=== PATIENT | male | born 1995 | race Caucasian/White ===

== ENCOUNTER 2019-07-02 09:01 | Emergency (ER) | payer OTHER, SELFPAY ==
[2019-07-02] VITALS (48 sets, daily range): BP systolic 95–248; BP diastolic 38–216; PULSE 56–148; RESP 15–27; TEMP 36.6–37.2; O2SAT 94–100; BMI 24.9
--- NOTE | 2019-07-02 09:30 | ED_ITS ---
HPI - Headache <Mitzy Cortes DO - Last Filed: 07/02/19 19:33> General Chief Complaint: Headache Stated Complaint: Not able to sleep for 2 days/paranoid Time Seen by Provider: 07/02/19 09:18 Mode of arrival: Family Vehicle Limitations: no limitations History of Present Illness HPI Narrative: Patient is a 23-year-old male who presents with all headache and lightheadedness along with hallucinations. He says he had gastroenteritis like symptoms weak but not severe. He had some nausea vomiting some very mild di arrhea. Is really eaten or had much to drink for the last 3 days although he has been able to keep down water. He has not been able to sleep your mom states that last night he was hallucinating seeing things that were not there. He feels like his hallucinations are gone although his the mom states that she still sometimes catches him talking to things that are there. He denies any drug use except for marijuana. MD Complaint: headache Related Data Allergies Allergy/AdvReac Type Severity Reaction Status Date / Time No Known Drug Allergies Allergy Verified 07/02/19 09:24 Review of Systems <Mitzy Cortes DO - Last Filed: 07/02/19 19:33> Review of Systems ROS Unobtainable: All systems reviewed & are unremarkable except as noted in HPI and below Constitutional Constitutional: Denies chills, Denies fever(s), Reports headache(s), Denies lethargy and Denies weakness Eyes Eyes: Denies change in vision, Denies eye discharge, Denies irritation and Denies loss of vision ENT Ears, Nose, Mouth, and Throat: Denies change in voice, Reports headache(s), Denies neck pain and Denies sore throat Cardiovascular Cardiovascular: Denies chest pain, Denies irregular heart rhythm, Denies lightheadedness, Denies palpitations, Denies dyspnea, Denies dyspnea on exertion and Denies orthopnea Respiratory Respiratory: Denies cough, Denies dyspnea, Denies dyspnea on exertion and Denies wheezing Gastrointestinal Gastrointestinal: Reports as per HPI Genitourinary Genitourinary: Denies hematuria, Denies flank pain, Denies urinary incontinence and Denies urinary urgency Musculoskeletal Musculoskeletal: Denies neck pain Integumentary/Breasts Skin/Breast: Denies pruritus, Denies erythema, Denies rash and Denies wounds Neurologic Neurologic: Reports headache(s), Denies loss of vision and Denies weakness Endocrine Endocrine: Denies palpitations Allergic/Immunologic Allergic/Immunologic: Denies wheezing Patient History <DO Fahad Boucher Last Filed: 07/02/19 19:33> Medical History Patient denies medical problems (Acute) Social History Smoking Status: Current every day smoker tobacco type: cigarettes alcohol intake frequency: 3 or more drinks per day 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 HEENT: Head atraumatic,EOMI, pupils reactive, face symmetric, moist mucous membranes CARDIOVASCULAR: Regular rate and rhythm without murmurs, rubs or gallops. RESPIRATORY: Breath sounds equal bilaterally, no wheezes rales or rhonchi. ABDOMEN: Soft, nontender. Normoactive bowel sounds all 4 quadrants. No guarding or rebound. EXTREMITIES: Normal range of motion, no clubbing or edema. Neurovascularly intact NEUROLOGICAL: Alert and oriented x4.Normal gait and speech. Director Of Architecture strength equal bilaterally SKIN: Warm, dry, no laceration, no petechiae, no rashes or lesions. <Rodrigo De Souza DO - Last Filed: 07/03/19 01:42> Initial Vital Signs Initial Vital Signs: Vital Signs Temperature 98.2 F 07/02/19 09:17 Pulse Rate 92 H 07/02/19 09:17 Respiratory Rate 18 07/02/19 09:17 Blood Pressure 163/105 H 07/02/19 09:17 Pulse Oximetry 100 07/02/19 09:17 Procedures <DO Fahad Boucher Last Filed: 07/02/19 19:33> Procedural Sedation Patient Age: Patient is 5yrs or older Consent signed: No Time out performed: Yes Presedation Evaluation: Severe agitation patient was becoming danger to self, I talked with mom about risks and benefits she gave verbal consent ASA Class: I Mallampati Airway Classification: Class I Preparation: furniture crater applied, pulse oximeter, capnometry used, supplemental O2 applied, suction/airway equipment at bedside and IV secured Midazolam dose (mg): 255 IV Propofol dose (mg): 100 Intraservice time/total sedation time (min): 20 ED Sedation Level: Moderate (Concious) Complications: Respiratory Depression-Repositioning Required Interventions: Airway repositioned Additional Comments: Also Ativan 4 mg IV <Rodrigo De Souza, DO - Last Filed: 07/03/19 01:42> Intubation Time out performed: Yes sedative: Ketamine paralytic: Rocuronium Laryngoscope: other ET Tube Size: 7.5 ET Tube Uncuffed: Yes Tube Secured Depth (cm): 23 Tube Secured Location: teeth Tube Placement Confirmation: Visualized tube passing through cords, Equal breath sounds bilaterally, No breath sounds over epigastrium, Confirmation by capnometry and Chest Xray Patient Tolerated Procedure: Well Intubation Complications: none Lumbar Puncture Time Out Performed: Yes Patient Position: left lateral decubitus Skin Prep: 0.5% Chlorhexidine/Alcohol Local Anesthetic: lidocaine 1% Amount of anesthesia used (mL): 2 Spinal Needle Gauge: 22G Interspace Used: L4-L5 Fluid Initially Obtained: clear Complications: none Course <Mitzy Cortes, DO - Last Filed: 07/02/19 19:33> Orders Ordered: ED Orders 07/02/19 19:07 CT head/brain wo con Stat 07/02/19 20:18 CSF culture Stat Cell Count w Diff CSF Stat Glucose CSF Stat HOLD TUBE CSF Stat Meningitis Panel (Film Array) Stat Total Protein CSF Stat 07/02/19 21:06 XR chest 1V Stat 07/02/19 23:00 Arterial Blood Gas Stat Propofol (Propofol) 1,000 mg in 100 mls @ 2.572 mls/hr IV TITRATE HUMBERTO; Protocol Last Admin: 07/03/19 01:00 Dose: 40 mcg/kg/min, 20.575 mls/hr Documented by: Titration: 07/03/19 01:00 Dose: 40 mcg/kg/min, 20.575 mls/hr Documented by: Titration: 07/02/19 22:51 Dose: 40 mcg/kg/min, 20.575 mls/hr Documented by: Titration: 07/02/19 22:37 Dose: 50 mcg/kg/min, 25.719 mls/hr Documented by: Titration: 07/02/19 22:30 Dose: 60 mcg/kg/min, 30.862 mls/hr Documented by: Titration: 07/02/19 22:20 Dose: 70 mcg/kg/min, 36.006 mls/hr Documented by: Titration: 07/02/19 21:27 Dose: 80 mcg/kg/min, 41.15 mls/hr Documented by: Titration: 07/02/19 21:25 Dose: 70 mcg/kg/min, 36.006 mls/hr Documented by: Titration: 07/02/19 21:20 Dose: 20 mcg/kg/min, 10.287 mls/hr Documented by: Titration: 07/02/19 21:12 Dose: 10 mcg/kg/min, 5.144 mls/hr Documented by: Admin: 07/02/19 20:43 Dose: 5 mcg/kg/min, 2.572 mls/hr Documented by: MARISSA Sodium Chloride (Normal Saline 0.9%) 1,000 mls @ 125 mls/hr IV CONT HUMBERTO Last Admin: 07/02/19 23:19 Dose: 125 mls/hr Documented by: MARISSA Discontinued Medications Diazepam (Valium) 5 mg IV NOW ONE Stop: 07/02/19 17:32 Last Admin: 07/02/19 17:41 Dose: 5 mg Documented by: SCOTT Diphenhydramine HCl (Benadryl) 25 mg IV NOW ONE Stop: 07/02/19 09:32 Last Admin: 07/02/19 10:15 Dose: 25 mg Documented by: SCOTT Diphenhydramine HCl (Benadryl) 25 mg IV NOW ONE Stop: 07/02/19 13:06 Last Admin: 07/02/19 13:11 Dose: 25 mg Documented by: SCOTT Haloperidol (Haldol) 2 mg IV NOW ONE Stop: 07/02/19 12:45 Last Admin: 07/02/19 13:01 Dose: 2 mg Documented by: SCOTT Sodium Chloride (Normal Saline 0.9%) 1,000 mls @ 1,000 mls/hr IV BOLUS ONE Stop: 07/02/19 10:30 Last Infusion: 07/02/19 11:41 Dose: 0 mls/hr Documented by: Admin: 07/02/19 10:15 Dose: 1,000 mls/hr Documented by: SCOTT Sodium Chloride (Normal Saline 0.9%) 1,000 mls @ 1,000 mls/hr IV BOLUS ONE Stop: 07/02/19 12:50 Last Infusion: 07/02/19 13:05 Dose: 0 mls/hr Documented by: Admin: 07/02/19 11:57 Dose: 1,000 mls/hr Documented by: SCOTT Sodium Chloride (Normal Saline 0.9%) 1,000 mls @ 1,000 mls/hr IV BOLUS ONE Stop: 07/02/19 15:10 Last Infusion: 07/02/19 15:10 Dose: 0 mls/hr Documented by: Admin: 07/02/19 14:11 Dose: 1,000 mls/hr Documented by: SCOTT Ketamine HCl (Ketalar) 170 mg IV NOW ONE Stop: 07/02/19 14:05 Last Admin: 07/02/19 14:11 Dose: 170 mg Documented by: SCOTT Ketamine HCl (Ketalar) 85 mg 1 mg/kg (85 mg) IV NOW ONE Stop: 07/02/19 14:23 Last Admin: 07/02/19 14:25 Dose: 85 mg Documented by: SCOTT Ketamine HCl (Ketalar) 500 mg IM NOW ONE Stop: 07/02/19 20:04 Last Admin: 07/02/19 20:04 Dose: 500 mg Documented by: SCOTT Ketorolac Tromethamine (Toradol) 30 mg IV NOW ONE Stop: 07/02/19 09:32 Last Admin: 07/02/19 10:14 Dose: 30 mg Documented by: SCOTT Lorazepam (Ativan) 1 mg IV NOW ONE Stop: 07/02/19 11:33 Last Admin: 07/02/19 11:46 Dose: 1 mg Documented by: SCOTT Lorazepam (Ativan) 1 mg IV NOW ONE Stop: 07/02/19 11:52 Last Admin: 07/02/19 11:57 Dose: 1 mg Documented by: SCOTT Lorazepam (Ativan) 2 mg IV NOW ONE Stop: 07/02/19 13:34 Last Admin: 07/02/19 13:41 Dose: 2 mg Documented by: PETE Olanzapine (Zyprexa Zydis) 20 mg PO NOW ONE Stop: 07/02/19 18:28 Last Admin: 07/02/19 18:54 Dose: Not Given Documented by: SCOTT Olanzapine (Zyprexa) 10 mg IM NOW ONE Stop: 07/02/19 18:35 Last Admin: 07/02/19 18:47 Dose: 10 mg Documented by: SCOTT Prochlorperazine (Compazine) 10 mg IV NOW ONE Stop: 07/02/19 09:32 Last Admin: 07/02/19 10:15 Dose: 10 mg Documented by: SCOTT Propofol (Diprivan) 200 mg IV NOW ONE Stop: 07/02/19 19:54 Last Admin: 07/02/19 20:36 Dose: 100 mg Documented by: MARISSA Propofol (Diprivan) 40 mg IV NOW ONE Stop: 07/02/19 21:27 Last Admin: 07/02/19 23:20 Dose: 40 mg Documented by: MARISSA Rocuronium [facility] (Zemuron) 85 mg IV NOW ONE Stop: 07/02/19 20:41 Last Admin: 07/02/19 20:40 Dose: 85 mg Documented by: MARISSA Rocuronium [facility] (Zemuron) 51 mg 0.6 mg/kg (51 mg) IV NOW ONE Stop: 07/02/19 22:00 Last Admin: 07/02/19 21:59 Dose: 51 mg Documented by: MARISSA Reevaluation(s) Reevaluation #1: The patient try to sleep but not yet of sleep points up to the ceiling and says that these guys are keeping him awake Mom says that he has been having these hallucinations ongoing for the last 48 hours straight this is very atypical. He really has not slept. When I question patient directly upon out suicidal ideations homicidal ideations auditory hallucinations he adamantly denies. In fact he feels like he would like to go home now because the bed is uncomfortable. I will give him a dose of Ativan now to see if it helps him sleep. I believe his hallucinations are likely from lack of sleep Time: 11:38 Vital Signs Vital signs: Vital Signs - 8 hr 07/02/19 17:48 07/02/19 18:00 07/02/19 19:25 Pulse Rate 110 H 113 H 104 H Respiratory Rate 20 27 H 15 Blood Pressure [Left Arm] Blood Pressure [Right Arm] 134/63 110/66 143/91 H Pulse Oximetry 94 99 100 07/02/19 20:00 07/02/19 21:30 07/02/19 21:57 Pulse Rate 128 H 88 73 Respiratory Rate 23 18 18 Blood Pressure [Left Arm] 156/117 H Blood Pressure [Right Arm] 137/69 114/53 L Pulse Oximetry 99 99 97 07/02/19 22:15 07/02/19 22:20 07/02/19 22:25 Pulse Rate 77 75 73 Respiratory Rate 18 18 18 Blood Pressure [Left Arm] 107/54 L 104/50 L 105/48 L Blood Pressure [Right Arm] Pulse Oximetry 99 99 99 07/02/19 22:30 07/02/19 22:35 07/02/19 22:40 Pulse Rate 71 72 71 Respiratory Rate 18 18 18 Blood Pressure [Left Arm] 101/51 L 98/50 L 97/50 L Blood Pressure [Right Arm] Pulse Oximetry 99 99 99 07/02/19 22:45 07/02/19 22:50 07/02/19 22:53 Pulse Rate 68 69 62 Respiratory Rate 18 18 18 Blood Pressure [Left Arm] 98/51 L 97/51 L 98/52 L Blood Pressure [Right Arm] Pulse Oximetry 99 99 100 07/02/19 22:55 07/02/19 23:01 07/02/19 23:05 Pulse Rate 67 64 64 Respiratory Rate 18 18 18 Blood Pressure [Left Arm] 95/54 L 98/48 L 104/46 L Blood Pressure [Right Arm] Pulse Oximetry 99 100 100 07/02/19 23:10 07/02/19 23:15 07/02/19 23:20 Pulse Rate 63 59 L 59 L Respiratory Rate 18 18 18 Blood Pressure [Left Arm] 103/48 L 101/49 L 105/50 L Blood Pressure [Right Arm] Pulse Oximetry 100 100 100 07/02/19 23:25 07/02/19 23:30 07/02/19 23:35 Pulse Rate 62 58 L 58 L Respiratory Rate 18 18 18 Blood Pressure [Left Arm] 107/56 L 105/58 L 108/59 L Blood Pressure [Right Arm] Pulse Oximetry 100 100 100 07/02/19 23:40 07/02/19 23:45 07/02/19 23:50 Pulse Rate 56 L 60 59 L Respiratory Rate 18 18 18 Blood Pressure [Left Arm] 108/57 L 105/55 L 105/57 L Blood Pressure [Right Arm] Pulse Oximetry 100 100 100 07/02/19 23:55 07/03/19 00:00 07/03/19 00:05 Pulse Rate 59 L 60 59 L Respiratory Rate 18 18 18 Blood Pressure [Left Arm] 108/56 L 110/55 L 114/65 Blood Pressure [Right Arm] Pulse Oximetry 100 100 100 07/03/19 00:10 07/03/19 00:15 07/03/19 00:20 Pulse Rate 60 61 61 Respiratory Rate 18 18 18 Blood Pressure [Left Arm] 105/53 L 114/52 L 110/59 L Blood Pressure [Right Arm] Pulse Oximetry 100 100 100 07/03/19 00:21 07/03/19 00:25 07/03/19 00:30 Pulse Rate 61 61 60 Respiratory Rate 18 18 Blood Pressure [Left Arm] 110/59 L 114/58 L 114/56 L Blood Pressure [Right Arm] Pulse Oximetry 100 100 100 07/03/19 00:35 07/03/19 00:45 07/03/19 00:50 Pulse Rate 61 63 76 Respiratory Rate 18 18 18 Blood Pressure [Left Arm] 112/61 126/112 H 120/81 Blood Pressure [Right Arm] Pulse Oximetry 100 100 100 07/03/19 00:55 07/03/19 01:00 07/03/19 01:05 Pulse Rate 58 L 64 62 Respiratory Rate 18 18 18 Blood Pressure [Left Arm] 120/87 118/74 120/72 Blood Pressure [Right Arm] Pulse Oximetry 100 100 100 07/03/19 01:10 07/03/19 01:15 07/03/19 01:20 Pulse Rate 67 61 67 Respiratory Rate 18 18 18 Blood Pressure [Left Arm] 117/76 123/78 117/72 Blood Pressure [Right Arm] Pulse Oximetry 100 100 100 07/03/19 01:25 07/03/19 01:30 Pulse Rate 60 65 Respiratory Rate 18 18 Blood Pressure [Left Arm] 117/71 117/70 Blood Pressure [Right Arm] Pulse Oximetry 100 100 <Rodrigo De Souza, DO - Last Filed: 07/03/19 01:42> Course Course Narrative: Patient received in sign-out from Dr. Cortes. I have performed an extensive an independent history and physical exam. At this point time is differential is wide and includes toxic, metabolic, infectious and psychiatric etiologies. Patient continues to extensive visual hallucinations and episodes of violent behavior which are becoming increasingly difficult to verbally deescalate. Patient has received multiple rounds of medications to allow ongoing evaluation and ensure the safety of the patient and our staff. In the end, as the patient continued to escalate I elected to intubate S the patient's airway was becoming compromised. Patient is complex and presents the scenario that is best served at a larger facility. I have spoken with neuro computer operations specialist and computer operations specialist at [facility] and they are happy to accept this patient for ongoing evaluation. Mother (Laney [phone]) is aware of the plan and will head down to [facility] in the morning. [facility] here now. Patient remains stable and intubated Orders Ordered: ED Orders 07/02/19 19:07 CT head/brain wo con Stat 07/02/19 20:18 CSF culture Stat Cell Count w Diff CSF Stat Glucose CSF Stat HOLD TUBE CSF Stat Meningitis Panel (Film Array) Stat Total Protein CSF Stat 07/02/19 21:06 XR chest 1V Stat 07/02/19 23:00 Arterial Blood Gas Stat Propofol (Propofol) 1,000 mg in 100 mls @ 2.572 mls/hr IV TITRATE HUMBERTO; Protocol Last Admin: 07/03/19 01:00 Dose: 40 mcg/kg/min, 20.575 mls/hr Documented by: Titration: 07/03/19 01:00 Dose: 40 mcg/kg/min, 20.575 mls/hr Documented by: Titration: 07/02/19 22:51 Dose: 40 mcg/kg/min, 20.575 mls/hr Documented by: Titration: 07/02/19 22:37 Dose: 50 mcg/kg/min, 25.719 mls/hr Documented by: Titration: 07/02/19 22:30 Dose: 60 mcg/kg/min, 30.862 mls/hr Documented by: Titration: 07/02/19 22:20 Dose: 70 mcg/kg/min, 36.006 mls/hr Documented by: Titration: 07/02/19 21:27 Dose: 80 mcg/kg/min, 41.15 mls/hr Documented by: Titration: 07/02/19 21:25 Dose: 70 mcg/kg/min, 36.006 mls/hr Documented by: Titration: 07/02/19 21:20 Dose: 20 mcg/kg/min, 10.287 mls/hr Documented by: Titration: 07/02/19 21:12 Dose: 10 mcg/kg/min, 5.144 mls/hr Documented by: Admin: 07/02/19 20:43 Dose: 5 mcg/kg/min, 2.572 mls/hr Documented by: MARISSA Sodium Chloride (Normal Saline 0.9%) 1,000 mls @ 125 mls/hr IV CONT HUMBERTO Last Admin: 07/02/19 23:19 Dose: 125 mls/hr Documented by: MARISSA Discontinued Medications Diazepam (Valium) 5 mg IV NOW ONE Stop: 07/02/19 17:32 Last Admin: 07/02/19 17:41 Dose: 5 mg Documented by: SCOTT Diphenhydramine HCl (Benadryl) 25 mg IV NOW ONE Stop: 07/02/19 09:32 Last Admin: 07/02/19 10:15 Dose: 25 mg Documented by: SCOTT Diphenhydramine HCl (Benadryl) 25 mg IV NOW ONE Stop: 07/02/19 13:06 Last Admin: 07/02/19 13:11 Dose: 25 mg Documented by: SCOTT Haloperidol (Haldol) 2 mg IV NOW ONE Stop: 07/02/19 12:45 Last Admin: 07/02/19 13:01 Dose: 2 mg Documented by: SCOTT Sodium Chloride (Normal Saline 0.9%) 1,000 mls @ 1,000 mls/hr IV BOLUS ONE Stop: 07/02/19 10:30 Last Infusion: 07/02/19 11:41 Dose: 0 mls/hr Documented by: Admin: 07/02/19 10:15 Dose: 1,000 mls/hr Documented by: SCOTT Sodium Chloride (Normal Saline 0.9%) 1,000 mls @ 1,000 mls/hr IV BOLUS ONE Stop: 07/02/19 12:50 Last Infusion: 07/02/19 13:05 Dose: 0 mls/hr Documented by: Admin: 07/02/19 11:57 Dose: 1,000 mls/hr Documented by: SCOTT Sodium Chloride (Normal Saline 0.9%) 1,000 mls @ 1,000 mls/hr IV BOLUS ONE Stop: 07/02/19 15:10 Last Infusion: 07/02/19 15:10 Dose: 0 mls/hr Documented by: Admin: 07/02/19 14:11 Dose: 1,000 mls/hr Documented by: SCOTT Ketamine HCl (Ketalar) 170 mg IV NOW ONE Stop: 07/02/19 14:05 Last Admin: 07/02/19 14:11 Dose: 170 mg Documented by: SCOTT Ketamine HCl (Ketalar) 85 mg 1 mg/kg (85 mg) IV NOW ONE Stop: 07/02/19 14:23 Last Admin: 07/02/19 14:25 Dose: 85 mg Documented by: SCOTT Ketamine HCl (Ketalar) 500 mg IM NOW ONE Stop: 07/02/19 20:04 Last Admin: 07/02/19 20:04 Dose: 500 mg Documented by: SCOTT Ketorolac Tromethamine (Toradol) 30 mg IV NOW ONE Stop: 07/02/19 09:32 Last Admin: 07/02/19 10:14 Dose: 30 mg Documented by: SCOTT Lorazepam (Ativan) 1 mg IV NOW ONE Stop: 07/02/19 11:33 Last Admin: 07/02/19 11:46 Dose: 1 mg Documented by: SCOTT Lorazepam (Ativan) 1 mg IV NOW ONE Stop: 07/02/19 11:52 Last Admin: 07/02/19 11:57 Dose: 1 mg Documented by: SCOTT Lorazepam (Ativan) 2 mg IV NOW ONE Stop: 07/02/19 13:34 Last Admin: 07/02/19 13:41 Dose: 2 mg Documented by: PETE Olanzapine (Zyprexa Zydis) 20 mg PO NOW ONE Stop: 07/02/19 18:28 Last Admin: 07/02/19 18:54 Dose: Not Given Documented by: SCOTT Olanzapine (Zyprexa) 10 mg IM NOW ONE Stop: 07/02/19 18:35 Last Admin: 07/02/19 18:47 Dose: 10 mg Documented by: SCOTT Prochlorperazine (Compazine) 10 mg IV NOW ONE Stop: 07/02/19 09:32 Last Admin: 07/02/19 10:15 Dose: 10 mg Documented by: SCOTT Propofol (Diprivan) 200 mg IV NOW ONE Stop: 07/02/19 19:54 Last Admin: 07/02/19 20:36 Dose: 100 mg Documented by: MARISSA Propofol (Diprivan) 40 mg IV NOW ONE Stop: 07/02/19 21:27 Last Admin: 07/02/19 23:20 Dose: 40 mg Documented by: MARISSA Rocuronium [facility] (Zemuron) 85 mg IV NOW ONE Stop: 07/02/19 20:41 Last Admin: 07/02/19 20:40 Dose: 85 mg Documented by: MARISSA Rocuronium [facility] (Zemuron) 51 mg 0.6 mg/kg (51 mg) IV NOW ONE Stop: 07/02/19 22:00 Last Admin: 07/02/19 21:59 Dose: 51 mg Documented by: MARISSA Vital Signs Vital signs: Vital Signs - 8 hr 07/02/19 17:48 07/02/19 18:00 07/02/19 19:25 Pulse Rate 110 H 113 H 104 H Respiratory Rate 20 27 H 15 Blood Pressure [Left Arm] Blood Pressure [Right Arm] 134/63 110/66 143/91 H Pulse Oximetry 94 99 100 07/02/19 20:00 07/02/19 21:30 07/02/19 21:57 Pulse Rate 128 H 88 73 Respiratory Rate 23 18 18 Blood Pressure [Left Arm] 156/117 H Blood Pressure [Right Arm] 137/69 114/53 L Pulse Oximetry 99 99 97 07/02/19 22:15 07/02/19 22:20 07/02/19 22:25 Pulse Rate 77 75 73 Respiratory Rate 18 18 18 Blood Pressure [Left Arm] 107/54 L 104/50 L 105/48 L Blood Pressure [Right Arm] Pulse Oximetry 99 99 99 07/02/19 22:30 07/02/19 22:35 07/02/19 22:40 Pulse Rate 71 72 71 Respiratory Rate 18 18 18 Blood Pressure [Left Arm] 101/51 L 98/50 L 97/50 L Blood Pressure [Right Arm] Pulse Oximetry 99 99 99 07/02/19 22:45 07/02/19 22:50 07/02/19 22:53 Pulse Rate 68 69 62 Respiratory Rate 18 18 18 Blood Pressure [Left Arm] 98/51 L 97/51 L 98/52 L Blood Pressure [Right Arm] Pulse Oximetry 99 99 100 07/02/19 22:55 07/02/19 23:01 07/02/19 23:05 Pulse Rate 67 64 64 Respiratory Rate 18 18 18 Blood Pressure [Left Arm] 95/54 L 98/48 L 104/46 L Blood Pressure [Right Arm] Pulse Oximetry 99 100 100 07/02/19 23:10 07/02/19 23:15 07/02/19 23:20 Pulse Rate 63 59 L 59 L Respiratory Rate 18 18 18 Blood Pressure [Left Arm] 103/48 L 101/49 L 105/50 L Blood Pressure [Right Arm] Pulse Oximetry 100 100 100 07/02/19 23:25 07/02/19 23:30 07/02/19 23:35 Pulse Rate 62 58 L 58 L Respiratory Rate 18 18 18 Blood Pressure [Left Arm] 107/56 L 105/58 L 108/59 L Blood Pressure [Right Arm] Pulse Oximetry 100 100 100 07/02/19 23:40 07/02/19 23:45 07/02/19 23:50 Pulse Rate 56 L 60 59 L Respiratory Rate 18 18 18 Blood Pressure [Left Arm] 108/57 L 105/55 L 105/57 L Blood Pressure [Right Arm] Pulse Oximetry 100 100 100 07/02/19 23:55 07/03/19 00:00 07/03/19 00:05 Pulse Rate 59 L 60 59 L Respiratory Rate 18 18 18 Blood Pressure [Left Arm] 108/56 L 110/55 L 114/65 Blood Pressure [Right Arm] Pulse Oximetry 100 100 100 07/03/19 00:10 07/03/19 00:15 07/03/19 00:20 Pulse Rate 60 61 61 Respiratory Rate 18 18 18 Blood Pressure [Left Arm] 105/53 L 114/52 L 110/59 L Blood Pressure [Right Arm] Pulse Oximetry 100 100 100 07/03/19 00:21 07/03/19 00:25 07/03/19 00:30 Pulse Rate 61 61 60 Respiratory Rate 18 18 Blood Pressure [Left Arm] 110/59 L 114/58 L 114/56 L Blood Pressure [Right Arm] Pulse Oximetry 100 100 100 07/03/19 00:35 07/03/19 00:45 07/03/19 00:50 Pulse Rate 61 63 76 Respiratory Rate 18 18 18 Blood Pressure [Left Arm] 112/61 126/112 H 120/81 Blood Pressure [Right Arm] Pulse Oximetry 100 100 100 07/03/19 00:55 07/03/19 01:00 07/03/19 01:05 Pulse Rate 58 L 64 62 Respiratory Rate 18 18 18 Blood Pressure [Left Arm] 120/87 118/74 120/72 Blood Pressure [Right Arm] Pulse Oximetry 100 100 100 07/03/19 01:10 07/03/19 01:15 07/03/19 01:20 Pulse Rate 67 61 67 Respiratory Rate 18 18 18 Blood Pressure [Left Arm] 117/76 123/78 117/72 Blood Pressure [Right Arm] Pulse Oximetry 100 100 100 07/03/19 01:25 07/03/19 01:30 Pulse Rate 60 65 Respiratory Rate 18 18 Blood Pressure [Left Arm] 117/71 117/70 Blood Pressure [Right Arm] Pulse Oximetry 100 100 MDM - Headache <Mitzy Cortes, DO - Last Filed: 07/02/19 19:33> Lab Data Attestation: I reviewed the patient's lab results. Result diagrams: 07/02/19 10:00 07/02/19 10:00 Labs: Lab Results 07/02/19 07/02/19 07/02/19 Range/Units 10:00 10:00 10:00 WBC 4.6 (4.5-11.0) X10^3/uL RBC 4.66 (4.5-5.9) X10^6/uL Hgb 14.6 (13.5-17.5) g/dL Hct 42.2 (41-53) % MCV 90.5 (80-100) fL MCH 31.2 (26-34) PG MCHC 34.5 (30-36) % RDW 12.6 (11.6-14.8) % Plt Count 178 (150-400) X10^3/uL Neut % (Auto) 67.1 (50-75) % Lymph % (Auto) 19.7 L (25-40) % Dale % (Auto) 12.0 (3-14) % Eos % (Auto) 0.5 L (2-4) % Baso % (Auto) 0.7 (0-2) % Neut # (Auto) 3100 (8638-1144) /uL Lymph # (Auto) 900 L (0361-7046) /uL Dale # (Auto) 600 (0-900) /uL Eos # (Auto) 0 (0-450) /uL Baso # (Auto) 0 (0-100) /uL ABG pH (7.35-7.45) ABG pCO2 (35-45) mmHg ABG pO2 (80-100) mmHg ABG HCO3 (22-26) mmol/L ABG Total CO2 (21-31) mmol/L ABG O2 Saturation (95-100) % ABG Base Excess (-2-2) mmol/L FiO2 Sodium 138 (137-145) mmol/L Potassium 3.7 (3.4-5.1) mmol/L Chloride 99 (98-107) mmol/L Carbon Dioxide 23 (22-32) mmol/L BUN 12 (9-20) mg/dL Creatinine 0.90 (0.66-1.25) mg/dL Estimated GFR > 60.0 (>60) mL/min BUN/Creatinine Ratio 13.3 (6-22) Glucose 96 (70-100) mg/dL Calcium 9.9 (8.4-10.2) mg/dL Procalcitonin (<0.5) ng/mL CSF Tube Number CSF Volume CSF Appearance (Clear) CSF Color (Colorless) CSF WBC (0-5) MONO/uL CSF RBC RBC /uL CSF Mononuclear WBCs CSF Polynuclear WBCs CSF Glucose (40-70) mg/dL CSF Total Protein (12-60) mg/dL CSF C.neoform/gat PCR (Not Detect) CSF CMV DNA (PCR) (Not Detect) CSF Enterovirus (PCR) (Not Detect) CSF E. coli (PCR) (Not Detect) CSF H. influenzae (PCR) (Not Detect) CSF HSV I (PCR) (Not Detect) CSF HSV II (PCR) (Not Detect) CSF HHV 6 (PCR) (Not Detect) CSF L.monocytogenes PCR (Not Detect) CSF N. meningitidis PCR (Not Detect) CSF Parechovirus (PCR) (Not Detect) CSF S. agalactiae (PCR) (Not Detect) CSF S. pneumoniae (PCR) (Not Detect) CSF VZV (PCR) (Not Detecte) Salicylates (<20) mg/dL U Morph 300 ng/mL cutoff Negative (Negative) Ur Oxycodone Screen Negative (Negative) Urine Methadone Screen Negative (Negative) Acetaminophen (10-30) ug/mL Ur Barbiturates Screen Negative (Negative) U Tricyclic Antidepress Negative (Negative) Ur Phencyclidine Scrn Negative (Negative) Ur Amphetamines Screen Negative (Negative) U Methamphetamines Scrn Negative (Negative) Ur MDMA Scrn (Ecstasy) Negative (Negative) U Benzodiazepines Scrn Negative (Negative) Urine Cocaine Screen Negative (Negative) U Marijuana (THC) Screen Positive H (Negative) Ethyl Alcohol ( - 10) mg/dL 07/02/19 07/02/19 07/02/19 Range/Units 11:30 12:52 20:18 WBC (4.5-11.0) X10^3/uL RBC (4.5-5.9) X10^6/uL Hgb (13.5-17.5) g/dL Hct (41-53) % MCV (80-100) fL MCH (26-34) PG MCHC (30-36) % RDW (11.6-14.8) % Plt Count (150-400) X10^3/uL Neut % (Auto) (50-75) % Lymph % (Auto) (25-40) % Dale % (Auto) (3-14) % Eos % (Auto) (2-4) % Baso % (Auto) (0-2) % Neut # (Auto) (3034-1133) /uL Lymph # (Auto) (2483-2135) /uL Dale # (Auto) (0-900) /uL Eos # (Auto) (0-450) /uL Baso # (Auto) (0-100) /uL ABG pH (7.35-7.45) ABG pCO2 (35-45) mmHg ABG pO2 (80-100) mmHg ABG HCO3 (22-26) mmol/L ABG Total CO2 (21-31) mmol/L ABG O2 Saturation (95-100) % ABG Base Excess (-2-2) mmol/L FiO2 Sodium (137-145) mmol/L Potassium (3.4-5.1) mmol/L Chloride (98-107) mmol/L Carbon Dioxide (22-32) mmol/L BUN (9-20) mg/dL Creatinine (0.66-1.25) mg/dL Estimated GFR (>60) mL/min BUN/Creatinine Ratio (6-22) Glucose (70-100) mg/dL Calcium (8.4-10.2) mg/dL Procalcitonin < 0.05 (<0.5) ng/mL CSF Tube Number 3 CSF Volume 1.5 ml CSF Appearance Clear (Clear) CSF Color Colorless (Colorless) CSF WBC 0 (0-5) MONO/uL CSF RBC 2 RBC /uL CSF Mononuclear WBCs Not Reportable CSF Polynuclear WBCs Not Reportable CSF Glucose 53 (40-70) mg/dL CSF Total Protein 47 (12-60) mg/dL CSF C.neoform/gat PCR (Not Detect) CSF CMV DNA (PCR) (Not Detect) CSF Enterovirus (PCR) (Not Detect) CSF E. coli (PCR) (Not Detect) CSF H. influenzae (PCR) (Not Detect) CSF HSV I (PCR) (Not Detect) CSF HSV II (PCR) (Not Detect) CSF HHV 6 (PCR) (Not Detect) CSF L.monocytogenes PCR (Not Detect) CSF N. meningitidis PCR (Not Detect) CSF Parechovirus (PCR) (Not Detect) CSF S. agalactiae (PCR) (Not Detect) CSF S. pneumoniae (PCR) (Not Detect) CSF VZV (PCR) (Not Detecte) Salicylates < 1.0 (<20) mg/dL U Morph 300 ng/mL cutoff (Negative) Ur Oxycodone Screen (Negative) Urine Methadone Screen (Negative) Acetaminophen < 10 L (10-30) ug/mL Ur Barbiturates Screen (Negative) U Tricyclic Antidepress (Negative) Ur Phencyclidine Scrn (Negative) Ur Amphetamines Screen (Negative) U Methamphetamines Scrn (Negative) Ur MDMA Scrn (Ecstasy) (Negative) U Benzodiazepines Scrn (Negative) Urine Cocaine Screen (Negative) U Marijuana (THC) Screen (Negative) Ethyl Alcohol < 10 ( - 10) mg/dL 07/02/19 07/02/19 Range/Units 20:18 23:00 WBC (4.5-11.0) X10^3/uL RBC (4.5-5.9) X10^6/uL Hgb (13.5-17.5) g/dL Hct (41-53) % MCV (80-100) fL MCH (26-34) PG MCHC (30-36) % RDW (11.6-14.8) % Plt Count (150-400) X10^3/uL Neut % (Auto) (50-75) % Lymph % (Auto) (25-40) % Dale % (Auto) (3-14) % Eos % (Auto) (2-4) % Baso % (Auto) (0-2) % Neut # (Auto) (8052-1213) /uL Lymph # (Auto) (9216-5996) /uL Dale # (Auto) (0-900) /uL Eos # (Auto) (0-450) /uL Baso # (Auto) (0-100) /uL ABG pH 7.41 (7.35-7.45) ABG pCO2 31.1 L (35-45) mmHg ABG pO2 71 L (80-100) mmHg ABG HCO3 20 L (22-26) mmol/L ABG Total CO2 21 (21-31) mmol/L ABG O2 Saturation 95 (95-100) % ABG Base Excess -5.0 L (-2-2) mmol/L FiO2 0.30 Sodium (137-145) mmol/L Potassium (3.4-5.1) mmol/L Chloride (98-107) mmol/L Carbon Dioxide (22-32) mmol/L BUN (9-20) mg/dL Creatinine (0.66-1.25) mg/dL Estimated GFR (>60) mL/min BUN/Creatinine Ratio (6-22) Glucose (70-100) mg/dL Calcium (8.4-10.2) mg/dL Procalcitonin (<0.5) ng/mL CSF Tube Number CSF Volume CSF Appearance (Clear) CSF Color (Colorless) CSF WBC (0-5) MONO/uL CSF RBC RBC /uL CSF Mononuclear WBCs CSF Polynuclear WBCs CSF Glucose (40-70) mg/dL CSF Total Protein (12-60) mg/dL CSF C.neoform/gat PCR Not detected (Not Detect) CSF CMV DNA (PCR) Not detected (Not Detect) CSF Enterovirus (PCR) Not detected (Not Detect) CSF E. coli (PCR) Not detected (Not Detect) CSF H. influenzae (PCR) Not detected (Not Detect) CSF HSV I (PCR) Not detected (Not Detect) CSF HSV II (PCR) Not detected (Not Detect) CSF HHV 6 (PCR) Not detected (Not Detect) CSF L.monocytogenes PCR Not detected (Not Detect) CSF N. meningitidis PCR Not detected (Not Detect) CSF Parechovirus (PCR) Not detected (Not Detect) CSF S. agalactiae (PCR) Not detected (Not Detect) CSF S. pneumoniae (PCR) Not detected (Not Detect) CSF VZV (PCR) Not detected (Not Detecte) Salicylates (<20) mg/dL U Morph 300 ng/mL cutoff (Negative) Ur Oxycodone Screen (Negative) Urine Methadone Screen (Negative) Acetaminophen (10-30) ug/mL Ur Barbiturates Screen (Negative) U Tricyclic Antidepress (Negative) Ur Phencyclidine Scrn (Negative) Ur Amphetamines Screen (Negative) U Methamphetamines Scrn (Negative) Ur MDMA Scrn (Ecstasy) (Negative) U Benzodiazepines Scrn (Negative) Urine Cocaine Screen (Negative) U Marijuana (THC) Screen (Negative) Ethyl Alcohol ( - 10) mg/dL MDM Narrative Medical decision making narrative: Patient is obviously clearly hallucinating. This is likely due from insomnia the last 48 hours. I will give him Ativan to see if this helps let him sleep. He denies any suicidal ideations. No known history of mental illness. The patient was given Benadryl Toradol and Compazine initially for migraine like headache. Hallucinations, got worse after that. He was given Haldol and more Benadryl along with Ativan and he is continue to get more agitated and hallucinating. Symptoms seemed to be extra pyramidal, from likely of Benadryl. He was not responding to Ativan he was given multiple doses of Ativan. Patient started getting up and walking towards people I discussed with mom giving him ketamine. Respiratory therapy was called conscious sedation protocol followed. Patient was given 3 makes per kg of ketamine, he continue to have hallucinate. He was then given 100 mg of propofol which allowed him to sleep. He was monitored the entire time, an oral airway was placed however his CO2 remained good oral airway was temporary he maintained his airway. He was able to sleep for a few hours. Now getting agitated again trying to pull all lines. Mom states that he was hallucinating this pad last night as well it is possible he has underlying schizophrenia. However cannot assess that at this time. Valium ordered. Patient signed out to Dr. De Souza for further evaluation and treatment <Rodrigo De Souza DO - Last Filed: 07/03/19 01:42> Lab Data Labs: Lab Results 07/02/19 07/02/19 07/02/19 Range/Units 10:00 10:00 10:00 WBC 4.6 (4.5-11.0) X10^3/uL RBC 4.66 (4.5-5.9) X10^6/uL Hgb 14.6 (13.5-17.5) g/dL Hct 42.2 (41-53) % MCV 90.5 (80-100) fL MCH 31.2 (26-34) PG MCHC 34.5 (30-36) % RDW 12.6 (11.6-14.8) % Plt Count 178 (150-400) X10^3/uL Neut % (Auto) 67.1 (50-75) % Lymph % (Auto) 19.7 L (25-40) % Dale % (Auto) 12.0 (3-14) % Eos % (Auto) 0.5 L (2-4) % Baso % (Auto) 0.7 (0-2) % Neut # (Auto) 3100 (2524-2261) /uL Lymph # (Auto) 900 L (3968-9359) /uL Dale # (Auto) 600 (0-900) /uL Eos # (Auto) 0 (0-450) /uL Baso # (Auto) 0 (0-100) /uL ABG pH (7.35-7.45) ABG pCO2 (35-45) mmHg ABG pO2 (80-100) mmHg ABG HCO3 (22-26) mmol/L ABG Total CO2 (21-31) mmol/L ABG O2 Saturation (95-100) % ABG Base Excess (-2-2) mmol/L FiO2 Sodium 138 (137-145) mmol/L Potassium 3.7 (3.4-5.1) mmol/L Chloride 99 (98-107) mmol/L Carbon Dioxide 23 (22-32) mmol/L BUN 12 (9-20) mg/dL Creatinine 0.90 (0.66-1.25) mg/dL Estimated GFR > 60.0 (>60) mL/min BUN/Creatinine Ratio 13.3 (6-22) Glucose 96 (70-100) mg/dL Calcium 9.9 (8.4-10.2) mg/dL Procalcitonin (<0.5) ng/mL CSF Tube Number CSF Volume CSF Appearance (Clear) CSF Color (Colorless) CSF WBC (0-5) MONO/uL CSF RBC RBC /uL CSF Mononuclear WBCs CSF Polynuclear WBCs CSF Glucose (40-70) mg/dL CSF Total Protein (12-60) mg/dL CSF C.neoform/gat PCR (Not Detect) CSF CMV DNA (PCR) (Not Detect) CSF Enterovirus (PCR) (Not Detect) CSF E. coli (PCR) (Not Detect) CSF H. influenzae (PCR) (Not Detect) CSF HSV I (PCR) (Not Detect) CSF HSV II (PCR) (Not Detect) CSF HHV 6 (PCR) (Not Detect) CSF L.monocytogenes PCR (Not Detect) CSF N. meningitidis PCR (Not Detect) CSF Parechovirus (PCR) (Not Detect) CSF S. agalactiae (PCR) (Not Detect) CSF S. pneumoniae (PCR) (Not Detect) CSF VZV (PCR) (Not Detecte) Salicylates (<20) mg/dL U Morph 300 ng/mL cutoff Negative (Negative) Ur Oxycodone Screen Negative (Negative) Urine Methadone Screen Negative (Negative) Acetaminophen (10-30) ug/mL Ur Barbiturates Screen Negative (Negative) U Tricyclic Antidepress Negative (Negative) Ur Phencyclidine Scrn Negative (Negative) Ur Amphetamines Screen Negative (Negative) U Methamphetamines Scrn Negative (Negative) Ur MDMA Scrn (Ecstasy) Negative (Negative) U Benzodiazepines Scrn Negative (Negative) Urine Cocaine Screen Negative (Negative) U Marijuana (THC) Screen Positive H (Negative) Ethyl Alcohol ( - 10) mg/dL 07/02/19 07/02/19 07/02/19 Range/Units 11:30 12:52 20:18 WBC (4.5-11.0) X10^3/uL RBC (4.5-5.9) X10^6/uL Hgb (13.5-17.5) g/dL Hct (41-53) % MCV (80-100) fL MCH (26-34) PG MCHC (30-36) % RDW (11.6-14.8) % Plt Count (150-400) X10^3/uL Neut % (Auto) (50-75) % Lymph % (Auto) (25-40) % Dale % (Auto) (3-14) % Eos % (Auto) (2-4) % Baso % (Auto) (0-2) % Neut # (Auto) (1485-6968) /uL Lymph # (Auto) (5193-4541) /uL Dale # (Auto) (0-900) /uL Eos # (Auto) (0-450) /uL Baso # (Auto) (0-100) /uL ABG pH (7.35-7.45) ABG pCO2 (35-45) mmHg ABG pO2 (80-100) mmHg ABG HCO3 (22-26) mmol/L ABG Total CO2 (21-31) mmol/L ABG O2 Saturation (95-100) % ABG Base Excess (-2-2) mmol/L FiO2 Sodium (137-145) mmol/L Potassium (3.4-5.1) mmol/L Chloride (98-107) mmol/L Carbon Dioxide (22-32) mmol/L BUN (9-20) mg/dL Creatinine (0.66-1.25) mg/dL Estimated GFR (>60) mL/min BUN/Creatinine Ratio (6-22) Glucose (70-100) mg/dL Calcium (8.4-10.2) mg/dL Procalcitonin < 0.05 (<0.5) ng/mL CSF Tube Number 3 CSF Volume 1.5 ml CSF Appearance Clear (Clear) CSF Color Colorless (Colorless) CSF WBC 0 (0-5) MONO/uL CSF RBC 2 RBC /uL CSF Mononuclear WBCs Not Reportable CSF Polynuclear WBCs Not Reportable CSF Glucose 53 (40-70) mg/dL CSF Total Protein 47 (12-60) mg/dL CSF C.neoform/gat PCR (Not Detect) CSF CMV DNA (PCR) (Not Detect) CSF Enterovirus (PCR) (Not Detect) CSF E. coli (PCR) (Not Detect) CSF H. influenzae (PCR) (Not Detect) CSF HSV I (PCR) (Not Detect) CSF HSV II (PCR) (Not Detect) CSF HHV 6 (PCR) (Not Detect) CSF L.monocytogenes PCR (Not Detect) CSF N. meningitidis PCR (Not Detect) CSF Parechovirus (PCR) (Not Detect) CSF S. agalactiae (PCR) (Not Detect) CSF S. pneumoniae (PCR) (Not Detect) CSF VZV (PCR) (Not Detecte) Salicylates < 1.0 (<20) mg/dL U Morph 300 ng/mL cutoff (Negative) Ur Oxycodone Screen (Negative) Urine Methadone Screen (Negative) Acetaminophen < 10 L (10-30) ug/mL Ur Barbiturates Screen (Negative) U Tricyclic Antidepress (Negative) Ur Phencyclidine Scrn (Negative) Ur Amphetamines Screen (Negative) U Methamphetamines Scrn (Negative) Ur MDMA Scrn (Ecstasy) (Negative) U Benzodiazepines Scrn (Negative) Urine Cocaine Screen (Negative) U Marijuana (THC) Screen (Negative) Ethyl Alcohol < 10 ( - 10) mg/dL 07/02/19 07/02/19 Range/Units 20:18 23:00 WBC (4.5-11.0) X10^3/uL RBC (4.5-5.9) X10^6/uL Hgb (13.5-17.5) g/dL Hct (41-53) % MCV (80-100) fL MCH (26-34) PG MCHC (30-36) % RDW (11.6-14.8) % Plt Count (150-400) X10^3/uL Neut % (Auto) (50-75) % Lymph % (Auto) (25-40) % Dale % (Auto) (3-14) % Eos % (Auto) (2-4) % Baso % (Auto) (0-2) % Neut # (Auto) (5536-9061) /uL Lymph # (Auto) (3288-0185) /uL Dale # (Auto) (0-900) /uL Eos # (Auto) (0-450) /uL Baso # (Auto) (0-100) /uL ABG pH 7.41 (7.35-7.45) ABG pCO2 31.1 L (35-45) mmHg ABG pO2 71 L (80-100) mmHg ABG HCO3 20 L (22-26) mmol/L ABG Total CO2 21 (21-31) mmol/L ABG O2 Saturation 95 (95-100) % ABG Base Excess -5.0 L (-2-2) mmol/L FiO2 0.30 Sodium (137-145) mmol/L Potassium (3.4-5.1) mmol/L Chloride (98-107) mmol/L Carbon Dioxide (22-32) mmol/L BUN (9-20) mg/dL Creatinine (0.66-1.25) mg/dL Estimated GFR (>60) mL/min BUN/Creatinine Ratio (6-22) Glucose (70-100) mg/dL Calcium (8.4-10.2) mg/dL Procalcitonin (<0.5) ng/mL CSF Tube Number CSF Volume CSF Appearance (Clear) CSF Color (Colorless) CSF WBC (0-5) MONO/uL CSF RBC RBC /uL CSF Mononuclear WBCs CSF Polynuclear WBCs CSF Glucose (40-70) mg/dL CSF Total Protein (12-60) mg/dL CSF C.neoform/gat PCR Not detected (Not Detect) CSF CMV DNA (PCR) Not detected (Not Detect) CSF Enterovirus (PCR) Not detected (Not Detect) CSF E. coli (PCR) Not detected (Not Detect) CSF H. influenzae (PCR) Not detected (Not Detect) CSF HSV I (PCR) Not detected (Not Detect) CSF HSV II (PCR) Not detected (Not Detect) CSF HHV 6 (PCR) Not detected (Not Detect) CSF L.monocytogenes PCR Not detected (Not Detect) CSF N. meningitidis PCR Not detected (Not Detect) CSF Parechovirus (PCR) Not detected (Not Detect) CSF S. agalactiae (PCR) Not detected (Not Detect) CSF S. pneumoniae (PCR) Not detected (Not Detect) CSF VZV (PCR) Not detected (Not Detecte) Salicylates (<20) mg/dL U Morph 300 ng/mL cutoff (Negative) Ur Oxycodone Screen (Negative) Urine Methadone Screen (Negative) Acetaminophen (10-30) ug/mL Ur Barbiturates Screen (Negative) U Tricyclic Antidepress (Negative) Ur Phencyclidine Scrn (Negative) Ur Amphetamines Screen (Negative) U Methamphetamines Scrn (Negative) Ur MDMA Scrn (Ecstasy) (Negative) U Benzodiazepines Scrn (Negative) Urine Cocaine Screen (Negative) U Marijuana (THC) Screen (Negative) Ethyl Alcohol ( - 10) mg/dL Imaging Data CT scan - head: Radiologist's impression: Luis A Lorenz 23 M 1995 [place] [address] CT Scan Report Signed Patient: Marilee LorenzR#: [id number] : 1995Acct:[id number] Age/Sex: 23 / MDate of Service: 07/02/19 Loc: ED Accession Number: [id number] Procedure: CT head/brain wo con Ordering Provider: Rodrigo De Souza D.O. PROCEDURE: CT HEAD/BRAIN WO CON INDICATIONS: mental status change TECHNIQUE: Noncontrast 4.5 mm thick angled axial sections acquired from the foramen magnum to the vertex, with coronal and sagittal reformats. For radiation dose reduction, the following was used: automated exposure control, adjustment of mA and/or kV according to patient size. COMPARISON: None. FINDINGS: Image quality: Excellent. CSF spaces: Basal cisterns are patent. No extra-axial fluid collections. Ventricles are normal in size and shape. Brain: No midline shift. No intracranial masses or hemorrhage. Bermudez-white matter interface is normal. Skull and face: Calvarium and visualized facial bones are intact, without suspicious lesions. Sinuses: Small bilateral maxillary sinus mucus retention cysts. Minimal left ethmoid opacification. IMPRESSION: 1. No evidence acute stroke, hemorrhage, or mass. Normal brain parenchyma. 2. Mild sinus disease. Dictated by: Camden Mcelroy M.D. on 07/02/2019 at 20:05 Approved by: Camden Mcelroy M.D. on 07/02/2019 at 20:06 <Rodrigo De Souza DO - Last Filed: 07/03/19 01:42> Critical Care Time Critical Care Time: Yes Total Critical Care Time: 60 Attestation: The high probability of a clinically significant, sudden or life threatening deterioration of the [] system(s) required my full and direct attention, intervention and personal management. The aggregate critical care time was [60] minutes. This time is in addition to time spent performing reported procedures but includes the following: [x] Data Review and interpretation [x] Patient assessment and monitoring of vital signs [x] Documentation [x] Medication orders and management Discharge Plan Departure [facility] Disposition: [facility] Clinical Impression: Acute delirium, Agitated, Encephalopathy
--- NOTE | 2019-07-02 09:43 | PC.NURSE ---
Patient asked for water and gave them ice water
[2019-07-02 10:12] LABS: Add Manual Diff / Slide Review NO; Basophils Absolute Auto 0 /uL (0-100); Basophils Percent Auto 0.7 % (0-2); Eosinophils Absolute Auto 0 /uL (0-450); Eosinophils Percent Auto 0.5 % (2-4); Hematocrit 42.2 % (41-53); Hemoglobin 14.6 g/dL (13.5-17.5); Lymphocytes Absolute Auto 900 /uL (1100-4500); Lymphocytes Percent Auto 19.7 % (25-40); Mean Corpuscular HGB Conc 34.5 % (30-36); Mean Corpuscular Hemoglobin 31.2 PG (26-34); Mean Corpuscular Volume 90.5 fL (80-100); Monocytes Absolute Auto 600 /uL (0-900); Neutrophils Absolute Auto 3100 /uL (1500-7000); Neutrophils Percent Auto 67.1 % (50-75); Platelet Count 178 X10^3/uL (150-400); Red Blood Cell Count 4.66 X10^6/uL (4.5-5.9); Red Cell Distribution Width 12.6 % (11.6-14.8); White Blood Cell Count 4.6 X10^3/uL (4.5-11.0)
[2019-07-02] MEDS: KETOROLAC 60 MG/2 ML VIAL 30 MG IV (10:14)
[2019-07-02 10:15] LABS: UR Morphine/Opiate cutoff 300 Negative (Negative); Ur Creatinine Normal (Normal); Ur Specific Gravity Normal (Normal); Urine Amphetamines Negative (Negative); Urine Barbiturates Negative (Negative); Urine Benzodiazepines Negative (Negative); Urine Cocaine Negative (Negative); Urine MDMA Negative (Negative); Urine Methadone Negative (Negative); Urine Methamphetamines Negative (Negative); Urine Oxycodone Negative (Negative); Urine Phencyclidine Negative (Negative); Urine Tetrahydrocannabinol Positive (Negative); Urine Tricyclic Antidepressant Negative (Negative); Urine pH Normal (Normal)
[2019-07-02] MEDS: diphenhydrAMINE 50 MG/ML VIAL 25 MG IV ×2 (10:15→13:11)
[2019-07-02] MEDS: SODIUM CHLORIDE 0.9% 1,000 ML 1000 ML IV ×3 (10:15→14:11)
[2019-07-02] MEDS: PROCHLORPERAZINE 10 MG/2 ML VIAL IV (10:15)
[2019-07-02 10:23] LABS: BUN Creatinine Ratio 13.3 (6-22); Blood Urea Nitrogen 12 mg/dL (9-20); Calcium 9.9 mg/dL (8.4-10.2); Carbon Dioxide 23 mmol/L (22-32); Chloride 99 mmol/L (98-107); Estimated Glomerular Filt Rate > 60.0 mL/min (>60); Glucose 96 mg/dL (70-100); HEMOLYSIS < 15 (0-50); Potassium 3.7 mmol/L (3.4-5.1); Sodium 138 mmol/L (137-145)
[2019-07-02] MEDS: LORazepam 2 MG/ML INJ 1 MG IV ×2 (11:46→11:57)
--- NOTE | 2019-07-02 12:05 | PC.NURSE ---
RN witnessed pt having hallucinations. pt with mumbling speech, not making any sense, having a hard time concentrating. when asked if he is hearing voices pt reports yes but its my own . talking about playing video games. diaphoretic. HR 114. BP 136/72. given cool cloth. made aware. 2mg ativan given. lights off for decreased stimulation. 2nd liter IVF infusing. will continue to monitor.
[2019-07-02 13:01] LABS: Acetaminophen < 10 ug/mL (10-30); Ethanol (ETOH) < 10 mg/dL; Salicylate < 1.0 mg/dL (<20)
[2019-07-02] MEDS: HALOPERIDOL 5 MG/ML VIAL 2 MG IV (13:01)
--- NOTE | 2019-07-02 13:26 | PC.NURSE ---
1300: BP noted to be 248/216. made aware. HR 99. pt continues to have hallucinations, restlessness, skin warm and clammy. Pt placed on monitor briefly and unable to tolerate leads on chest. pulling at lines and wires. Mother at bedside for de-escalation. Lunch tray provided and pt ate 100% of tray. additional 25mg Benadryl given and 2mg Haldol given. MD advised additional 2mg Ativan to be given. awaiting order. Fluids completed.
[2019-07-02] MEDS: LORazepam 2 MG/ML INJ IV (13:41)
[2019-07-02] MEDS: KETAMINE 500 MG/5 ML INJ 170 MG IV (14:11)
--- NOTE | 2019-07-02 14:12 | PC.NURSE ---
Pt increasingly agitated. HR 154. MD aware. 170mg Ketamine drawn. RT at bedside for sedation. IVF infusing. Placed on cardiac monitoring, ETCO2 applied. Ketamine given by Dr Cortes. 177/87 HR 132 ETCO2 25, 96% RA.
[2019-07-02 14:14] LABS: Procalcitonin < 0.05 ng/mL (<0.5)
[2019-07-02] MEDS: KETAMINE 500 MG/5 ML INJ 85 MG IV (14:25)
[2019-07-02] MEDS: LORazepam 2 MG/ML INJ ×2 (14:27→14:34)
--- NOTE | 2019-07-02 14:31 | PC.NURSE ---
1430: 2nd dose of Ketamine at 85mg and Ativan 2mg given IVP by Dr Cortes. HR 148, BP 111/90, SPO2 100%. IVF infusing. Pt increasingly more agitated. flailing and trying to get up. Screaming incomprehensible speech. Dr Cortes at bedside. Ordered additional 2mg ativan. 1436: Ativan 2mg drawn and admin'd by Dr Cortes. RT remains at bedside. Order for 100mg Propofol. 1442: Propofol Drawn and administered by Dr Cortes IVP and flushed. 1450: pt calmed. 95% RA. HR 117. 18G IV placed in the RAC. Pt calmed at this time. OPA in place. 97% RA. RT at bedside. spontaneous respirations with equal chest rise and fall. BP 131/60 HR 105 ETCO2 43 SPO2 95%
[2019-07-02] MEDS: PROPOFOL 200 MG/20 ML VIAL IV ×2 (14:40→20:36)
--- NOTE | 2019-07-02 15:52 | PC.NURSE ---
Pt transferred to 1 for continuous monitoring. attached to environmental monitoring specialist. Suction set up and ambu bag at bedside. Mother at side. Vitals remain stable. 120/38 HR 94 ETCO2 46 SPO2 97 on RA. Remains with OPA in airway without supplemental O2. Equal chest rise and fall. intermittent twitching. reacts to painful stimuli. RN 1:1 with Pt.
--- NOTE | 2019-07-02 16:34 | PC.NURSE ---
[place] catheter placed. No urinary drainage noted at this time. Pt did ambulate to BR x 2 prior to ketamine administration. Tolerated well. Arousable to tactile stimuli. Pupils equal round an reactive without presence of nystagmus. No change in assessment. intermittent twitching. equal chest rise and fall. BP 121/44 HR 83 ETCO2 47 SPO2 97% RA
--- NOTE | 2019-07-02 17:24 | PC.NURSE ---
Pt moving around in bed. appears to be waking up. + gag/cough. OPA removed. 100% RA. ETCO2 28. turning on side for comfort. restless. yelling incomprehensibly intermittently. HR increasing to 110-[address] Cortes aware and at bedside. no new orders.
[2019-07-02] MEDS: diazePAM 10 MG/2 ML SYRINGE 5 MG IV (17:41)
--- NOTE | 2019-07-02 18:08 | PC.NURSE ---
Pt continues to be restless, hallucinating, trying to touch things that arent there. recognizes mother. Valium given per MAR without improvement. maintaining airway, 100% RA. HR 122 BP 110/66.
--- NOTE | 2019-07-02 18:23 | PC.NURSE ---
Dr De Souza at bedside speaking with mother. Pt lucid for brief seconds at a time and then having rambling thoughts. Pulling at IV's and manager monitoring. attempted de-escalation. skin PWD. awaiting further orders
[2019-07-02] MEDS: OLANZapine 10 MG VIAL IM (18:47)
--- NOTE | 2019-07-02 18:49 | PC.NURSE ---
Zyprexa given per OCT. Pt awake and alert. ETCO2 removed, pt pulling at nasal cannula. Seems to be more calm at this time. Confused but able to follow simple commands.
--- NOTE | 2019-07-02 19:07 | DI.CT.S_ITS ---
PROCEDURE: CT HEAD/BRAIN WO CON INDICATIONS: mental status change TECHNIQUE: Noncontrast 4.5 mm thick angled axial sections acquired from the foramen magnum to the vertex, with coronal and sagittal reformats. For radiation dose reduction, the following was used: automated exposure control, adjustment of mA and/or kV according to patient size. COMPARISON: None. FINDINGS: Image quality: Excellent. CSF spaces: Basal cisterns are patent. No extra-axial fluid collections. Ventricles are normal in size and shape. Brain: No midline shift. No intracranial masses or hemorrhage. Bermudez-white matter interface is normal. Skull and face: Calvarium and visualized facial bones are intact, without suspicious lesions. Sinuses: Small bilateral maxillary sinus mucus retention cysts. Minimal left ethmoid opacification. IMPRESSION: 1. No evidence acute stroke, hemorrhage, or mass. Normal brain parenchyma. 2. Mild sinus disease. Dictated by: Camden Mcelroy M.D. on 07/02/2019 at 20:05 Approved by: Camden Mcelroy M.D. on 07/02/2019 at 20:06
--- NOTE | 2019-07-02 19:30 | PC.NURSE ---
1931: Pt prepped to be given propofol for CT scan. RT in room. Dr De Souza at bedside. connected to ETCO2 and cardiac monitoring. suction set up and OPA at bedside. BP 143/91HR 128 ETCO2 31 98%. 1935: 50mg propofol given IVP by Dr De Souza. Pt taken to CT 1939: another 50 mg of propofol given by Dr De Souza while in CT due to pt's agitation and restlessness. returned from CT without complication. pt maintaining his own airway. Prepping for LP. RT in room.
[2019-07-02] MEDS: KETAMINE 500 MG/5 ML INJ IM (20:04)
--- NOTE | 2019-07-02 20:05 | PC.NURSE ---
2015: Pt increasingly agitated and aggressive with staff and Dr De Souza. Pt unable to be restrained with staff members x 4. Verbal order Per Dr De Souza for Ketamine 500mg IM. Given in 2 separate sites per MAR by GONZALEZ Jimenez. Pt calming. ETCO2 40. HR 119 SPO2 100%. Pt prepped for LP. turned on L side. Report given to GONZALEZ Julio.
[2019-07-02] MEDS: ROCURONIUM 50 MG/5 ML INJ 85 MG IV (20:40)
[2019-07-02 20:43] LABS: Glucose CSF 53 mg/dL (40-70); Total Protein CSF 47 mg/dL (12-60)
[2019-07-02] MEDS: PROPOFOL 1,000 MG/100 ML VIAL 2.572 MG IV (20:43)
[2019-07-02] MEDS: ONDANSETRON 4 MG/2 ML INJ (20:46)
[2019-07-02 20:48] LABS: Appearance CSF Clear (Clear); CSF Tube Number 3; CSF Tube Volume 1.5 mL; Color CSF Colorless (Colorless); Red Blood Cell CSF 2 RBC /uL; White Blood Cell CSF 0 MONO/uL (0-5)
[2019-07-02 20:57] LABS: HOLD TUBE CSF YES
--- NOTE | 2019-07-02 21:06 | DI.RAD.S_ITS ---
PROCEDURE: XR CHEST 1V INDICATIONS: confirm tube placement TECHNIQUE: One view of the chest was acquired. COMPARISON: None. FINDINGS: Surgical changes and devices: ET tube is 3.9 cm superior to the jm. Lungs and pleura: Lungs are clear. No pleural effusions or pneumothorax. Mediastinum: Mediastinal contours appear normal. Heart size is normal. Bones and chest wall: No suspicious bony lesions. Overlying soft tissues appear unremarkable. IMPRESSION: ET tube 3.9 cm superior to the jm. Dictated by: Malika White MD, PhD on 07/03/2019 at 8:44 Approved by: Malika White MD, PhD on 07/03/2019 at 8:45
--- NOTE | 2019-07-02 21:07 | PC.NURSE ---
1205 pt stated hallucinating and requiring 1;[address] horta at bedside. tamera level upgraded
[2019-07-02] MEDS: fentaNYL 100 MCG/2 ML INJ ×2 (21:25→21:51)
[2019-07-02] MEDS: ROCURONIUM 50 MG/5 ML INJ 51 MG IV (21:59)
[2019-07-02 22:00] LABS: Escherichia coli K1 Not Detected (Not Detect)
[2019-07-02 22:01] LABS: Cryptococcus neoformans/gattii Not Detected (Not Detect); Enterovirus Not Detected (Not Detect); Haemophilus influenzae Not Detected (Not Detect); Herpes simplex virus 1 Not Detected (Not Detect); Herpes simplex virus 2 Not Detected (Not Detect); Human herpesvirus 6 Not Detected (Not Detect); Neisseria meningitidis Not Detected (Not Detect); Streptococcus agalactiae Not Detected (Not Detect); Streptococcus pneumoniae Not Detected (Not Detect)
[2019-07-02 22:02] LABS: Human parechovirus Not Detected (Not Detect); Listeria monocytogenes Not Detected (Not Detect); Varicella Zoster Virus Not Detected (Not Detecte)
--- NOTE | 2019-07-02 22:49 | RT ---
2041 pt intubated per md with 8.0 @ 20 cm. placed on vent at ac rate 18 400 tv and 30% +5. 2130 cxray viewed. about 4cm above jm. ettube advanced to 24. 2201 ettube replaced with a 7.5 bbs clear. cxray confirmed 2cm above the jm. bbs clear and ettube secure with soft restraints placed on pt.
[2019-07-02 23:12] LABS: pH ABG 7.41 (7.35-7.45)
[2019-07-02 23:13] LABS: HCO3 ABG 20 mmol/L (22-26); Oxygen Saturation ABG 95 % (95-100); PCO2 ABG 31.1 mmHg (35-45); PO2 ABG 71 mmHg (80-100); TCO2 ABG 21 mmol/L (21-31)
--- NOTE | 2019-07-02 23:16 | RT ---
2315 PT CALM AND RESTING ON VENT. BBS CLEAR. ETTUBE SECURE WITH SOFT RESTRAINTS TO WRISTS. AC 18 VT 400 35% +5 PEEP. SPO2 100%.
[2019-07-02] MEDS: SODIUM CHLORIDE 0.9% 1,000 ML 125 ML IV (23:19)
[2019-07-02] MEDS: PROPOFOL 200 MG/20 ML VIAL 40 MG IV (23:20)
--- NOTE | 2019-07-02 23:57 | PC.NURSE ---
I attempted an OG tube two times with no success. then I attempted NG tube in the left nare with no success. provider aware. no new orders at this time.
[2019-07-03] VITALS (25 sets, daily range): BP systolic 105–140; BP diastolic 52–112; PULSE 58–76; RESP 18; O2SAT 99–100
--- NOTE | 2019-07-03 00:56 | RT ---
0100 PT RESTING ON VENT. ETTUBE SECURE WITH HANDS RESTRAINED. BBS CLEAR. SPO2 100%. ETCO2 39. AC RATE 18 VT400 30% +5 PEEP. PEAK PRESSURE 14.
[2019-07-03] MEDS: PROPOFOL 1,000 MG/100 ML VIAL 20.575 MG IV ×2 (01:00→02:00)
== END 2019-07-03 02:00 | disposition short-term general hospital (02) ==
PROVIDERS: Emergency Medicine; Emergency Provider Emergency Medicine
DX: R41.0 Disorientation, unspecified (principal); R45.1 Restlessness and agitation; G93.40 Encephalopathy, unspecified; R51 Headache; R11.2 Nausea with vomiting, unspecified; R19.7 Diarrhea, unspecified
CPT/HCPCS: 31500; 36415; 36600; 51701; 62272; 70450; 71045; 80048; 80305; 80320; 80329; 82805; 82945; 83516; 84145; 84157; 85025; 86255; 87070; 87205; 87798; 89051; 94770; 94799; 96361; 96365; 96366; 96372; 96375; 96376; 99152; 99285; 99291; 99292; G0480; J0780; J1200; J1630; J1885; J2060; J2405; J2704; J3010; J3360; S0166